=== PATIENT | female | born 1930 | race Caucasian/White ===

== ENCOUNTER 2018-01-10 05:17 | Inpatient (IN) | payer OTHER ==
[~2018-01-10] VITALS: Ht 157.5 cm; Wt 52.6 kg
[~2018-01-10 05:17] MED LIST: AGGRENOX 25 MG-1 CAP PO; ARICEPT10 M1 PO; ATIVAN1 M1 PO; FUROSEMIDE40 MG PO; METFORMIN HCL500 M3 PO; NEURONTIN300 M1 PO; NORVASC5 M1 PO; RISPERDAL0.25 M1 PO; SIMVASTATIN20 M2 PO
--- NOTE | 2018-01-10 05:29 | ED DYSPNEA/ASTHMA COMPLAINT ---
History of Present Illness General Chief Complaint: Dyspnea (COPD, CHF, Other) Stated Complaint: BIBA, DIFF BREATHING Source: patient, old records, EMS Exam Limitations: clinical condition, dementia Vital Signs & Intake/Output Vital Signs & Intake/Output Vital Signs Date Time Temp Pulse Resp B/P B/P Pulse O2 O2 Flow FiO2 Mean Ox Delivery Rate 01/10 0602 100 BIPAP 60% 01/10 0600 87 100 01/10 0525 96.6 116 18 125/67 99 Non 100% ReBreather Allergies Coded Allergies: codeine (UNKNOWN 01/10/18) Reconcile Medications Amlodipine (Norvasc 5MG Tab) 5 MG TAB 1 TAB PO DAILY HEART (Reported) DONEPEZIL HCL (Donepezil HCl) 10 MG TAB 1 TAB PO QPM MENTAL HEALTH (Reported) Furosemide 40 MG TAB 1 TAB PO DAILY PRN LEG SWELLING (Reported) Gabapentin (Neurontin) 300 MG CAP 1 CAP PO BID UNKNOWN (Reported) Lorazepam (Ativan) 0.5 MG TAB 1 TAB PO DAILY ANXIETY/AGGRESION (Reported) Metformin Hydrochloride (Metformin HCl) 500 MG TAB 1 TAB PO BID DIABETES ( Reported) Risperidone (Risperdal) 0.25 MG TAB 1 TAB PO DAILY MENTAL HEALTH (Reported) Simvastatin 20 MG TAB 1 TAB PO QPM CHOLESTEROL (Reported) Triage Nurses Notes Reviewed? yes Onset: Just prior to arrival Duration: minute(s):, constant, continues in ED Timing: recent history Severity: severe Activities at Onset: rest Prior Episodes/Possible Cause: illness exposure Associated Symptoms: cough, wheezing, weakness LMP (ages 10-50): post menopausal : No Patient currently breastfeeds: No HPI: Family reports patient is had ongoing breathing issues over the last 2 months with coughing wheezing and weakness. Prior to admission her breathing became more labored. There has been no fever chills nausea vomiting diarrhea abdominal pain chest pain headache dysuria rash bleeding. Past History Travel History Traveled to [place] past 21 day No Medical History Any Pertinent Medical History? 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 No Review of Systems Review of Systems Constitutional: Reports: no symptoms. EENTM: Reports: no symptoms. Respiratory: Reports: see HPI, cough, short of breath, wheezing. Cardiovascular: Reports: no symptoms. GI: Reports: no symptoms. Genitourinary: Reports: no symptoms. Musculoskeletal: Reports: no symptoms. Skin: Reports: no symptoms. Neurological/Psychological: Reports: no symptoms. Hematologic/Endocrine: Reports: no symptoms. Immunologic/Allergic: Reports: no symptoms. All Other Systems: Reviewed and Negative Physical Exam Physical Exam General Appearance: well developed/nourished, alert, awake, anxious, severe distress, thin Head: atraumatic, normal appearance Eyes: Bilateral: normal appearance, PERRL, EOMI. Ears, Nose, Throat: normal pharynx, normal ENT inspection, hearing grossly normal, moist mucus membranes Neck: normal inspection, supple, full range of motion, no midline tenderness Respiratory: chest non-tender, crackles, respiratory distress Cardiovascular: regular rate/rhythm, normal peripheral pulses, tachycardia, norml femoral pulses equa Peripheral Pulses: 4+ carotid (R), 4+ carotid (L) Gastrointestinal: normal bowel sounds, soft, non-tender, no organomegaly Extremities: normal inspection, normal capillary refill, normal range of motion, no edema Neurologic/Psych: no motor/sensory deficits, 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 No CVA/TIA Diagnosis No Sepsis Present: Yes Sepsis Focused Exam Completed? Yes ED Sepsis Exam Date of Focused Sepsis Exam: 01/10/18 Time of Focused Sepsis Exam: 0800 Sepsis Cardiac Exam: Regular Rate/Rhythm Sepsis Resp Exam: Rales Sepsis Cap Refill Exam: <2 Sec Sepsis Peripheral Pulse Exam: Normal Sepsis Peripheral Pulse Location: Radial Sepsis Skin Color Exam: Normal for Ethnicity Skin Temp/Moisture Exam: Warm/Dry Progress Differential Diagnosis: bronchitis, CHF, COPD, pneumonia Plan of Care: Orders Procedure Date/time Status Regular Diet 01/10 B Active LACTIC ACID 01/10 822 Active OXYGEN SETUP (GEN) 01/10 617 Complete Saline Lock 01/10 617 Active Admit to inpatient 01/10 617 Active Vital Signs 01/10 617 Active Activity/Ambulation 01/10 617 Active BLOOD CULTURE 01/10 617 Active Code Status 01/10 617 Active BIPAP 01/10 600 Complete RAPID VIRAL INFLUENZA A 01/10 557 Complete ARTERIAL BLOOD GAS (GEN) 01/10 522 Complete TROPONIN LEVEL 01/10 522 Complete MAGNESIUM 01/10 522 Complete LACTIC ACID 01/10 522 Complete COMPREHENSIVE METABOLIC PANEL 01/10 522 Complete CBC WITHOUT DIFFERENTIAL 01/10 522 Complete B-TYPE NATRIURETIC PEP (BNP) 01/10 522 Complete EKG 01/10 522 Active Current Medications Sig/Yuval Start time Last Medication Dose Stop Time Status Admin Azithromycin 500 MG ONCE ONE 01/10 645 AC (Zithromax) 01/11 744 Dextrose/Water 250 ML (D5W) Sodium Chloride 1,000 ML BOLUS ONE 01/10 630 AC 01/10 (Normal Saline 0.9%) 01/10 Sodium Chloride 1,000 ML BOLUS ONE 01/10 630 AC 01/10 (Normal Saline 0.9%) 01/10 729 06 Laboratory Tests 01/10/18 0528: Anion Gap 10, Estimated GFR 47 L, BUN/Creatinine Ratio 19.1, Glucose 268 H, Lactic Acid 2.9 H, Calcium 9.0, Magnesium 2.2, Total Bilirubin 0.4, AST 22, ALT 29, Alkaline Phosphatase 97, Troponin I 0.06, Thh-G-Picqqmwvgym Pept 1090 H, Total Protein 6.3, Albumin 2.9 L, Globulin 3.4, Albumin/Globulin Ratio 0.9 L, CBC w Diff NO MAN DIFF REQ, RBC 3.32 L, MCV 89.5, MCH 28.6, MCHC 31.9 L, RDW 16.2 H, MPV 8.8, Gran % 61.8, Lymphocytes % 27.7, Monocytes % 5.2, Eosinophils % 4.5, Basophils % 0.8, Absolute Granulocytes 6.2, Absolute Lymphocytes 2.8, Absolute Monocytes 0.5, Absolute Eosinophils 0.5, Absolute Basophils 0.1 01/10/18 0525: pH 7.28 *L, pCO2 54 H, pO2 229 H, HCO3 25, ABG O2 Sat (Measured) 99.0, P-50 ( Temp Corrected) Y, Carboxyhemoglobin 0.1 L, O2 Concentration % 100%, Temperature 96.6 L, O2 Delivery Method NRB, Phlebotomy Draw Site RIGHT RADIAL Microbiology 01/10 06 BLOOD: Blood Culture - RECD 01/10 614 NASOPHARYN: Influenza Virus A & B Rapid Smear - COMP 01/10 603 BLOOD: Blood Culture - RECD Diagnostic Imaging: Viewed by Me: Radiology Read. Discussed w/RAD: Radiology Read. CXR Impression: No dense consolidation. Bronchial wall thickening can be seen with a small airways process such as asthma or atypical/viral infection. Edema is also a consideration. Initial ED EKG: normal axis, normal intervals, normal p-waves, normal QRS complex, normal sinus rhythm, no ST T wave changes Prior EKG: unchanged Rhythm Strip: sinus tachycardia Departure Departure Disposition: STILL A PATIENT Condition: Guarded Clinical Impression Primary Impression: Pneumonia Secondary Impressions: Acute respiratory acidosis, Lactic acidosis Referrals: Von Dunham MD (PCP/Family) Departure Forms: Customer Survey General Discharge Information Admission Note Spoke With: Von Dunham MD Documentation of Exam: Documentation of any treatments & extenuating circumstances including Concerns Regarding Discharge (functional status, medication knowledge or non-compliance, living conditions, etc.) that warrant an admission rather than observation: Serial lab exam follow cultures supplemental oxygen IV antibiotics medication adjustment continuing care discharge planning Critical Care Note Critical Care Note Critical Care Time: 30-74 min (40)
--- NOTE | 2018-01-10 05:52 | RADIOLOGY REPORT ---
EXAMINATION: XR PORTABLE CHEST CLINICAL INFORMATION: Shortness of breath. Rales. COMPARISON: 10/10/2015 TECHNIQUE: Portable frontal view of the chest was obtained. FINDINGS: Cardiac leads overlie the chest. The lungs are well expanded. Diffuse bronchial wall thickening is present. There is no focal consolidation, edema, or effusion. No pneumothorax. The cardiomediastinal silhouette is within normal limits. No acute osseous abnormality. IMPRESSION: No dense consolidation. Bronchial wall thickening can be seen with a small airways process such as asthma or atypical/viral infection. Edema is also a consideration.
[2018-01-10 05:53] LABS: ABSOLUTE BASOPHIL COUNT 0.1 /CUMM (0.0-0.2); ABSOLUTE EOSINOPHIL COUNT 0.5 /CUMM (0.0-0.7); ABSOLUTE GRANULOCYTE CT 6.2 /CUMM (1.4-6.5); ABSOLUTE LYMPH COUNT 2.8 /CUMM (1.2-3.4); ABSOLUTE MONOCYTE COUNT 0.5 /CUMM (0.10-0.60); BASOPHIL % 0.8 % (0.0-2.0); EOSINOPHIL % 4.5 % (0-5); GRANULOCYTE % 61.8 % (42.2-75.2); HEMATOCRIT 29.7 % (37-47); MEAN CORPUSCULAR HGB 28.6 PG (27.0-31.0); MEAN CORPUSCULAR HGB CONC 31.9 G/DL (33.0-37.0); MEAN CORPUSCULAR VOLUME 89.5 FL (81.0-99.0); MEAN PLATELET VOLUME 8.8 FL (7.4-10.4); PLATELET COUNT 339 /CUMM (130-400); RBC DISTRIBUTION WIDTH 16.2 % (11.5-14.5); RED BLOOD CELL CT 3.32 /CUMM (4.20-5.40); WHITE BLOOD CELL COUNT 10.1 /CUMM (4.8-10.8)
--- NOTE | 2018-01-10 07:22 | History & Physical ---
See Addendum General Information and HPI MD Statement: I have seen and personally examined QUENTIN MAI V and documented this H&P. The patient is a 87 year old F who presented with a patient stated chief complaint of [cough and shortness of breath]. Source of Information: patient, family, old records Exam Limitations: no limitations History of Present Illness: Patient is an 84-year-old woman with past medical history of Alzheimer's dementia, type 2 diabetes, hypertension, dyslipidemia, cataracts, question partial seizures.and HFrEF (Last echo Cardizem done 07/06/2010 with injection fraction of 40% with moderate concentra left ventricular hypertrophy). Active community dweller; has 24-hour aid; very limited and confined ambulation uses walker. At her baseline walks about 150 feet without complaining of shortness of breath. Most of the history was given by her daughter and son. According to patient's family, for the past few months patient has developed worsening chronic cough; she is currently on pured and chopped mechanical food but daughter noticed that her mother's coughing spells has been recently getting worse and mostly triggered by drinking liquids. She was restarted on cough suppressant syrup by her primary care physician which according to her daughter effectively suppress the cough. For the past few weeks there has been no change in her physical status. This morning around 4 5 AM patient woke up suddenly with an acute spell of cough and choking. She was found clammy with increased work of breathing by her aid. 911 was called; in the flows her oxygen saturation was down to 50 or 60%. She was restarted on oxygen and was transferred to the emergency room immediately. In ED patient was initially started on non-rebreather (ABG showed hypoxic hypercapnic respiratory failure and respiratory acidosis); about 3 hours later patient's ABG improved acidosis resolved dramatically and patients' respiratory support was downgraded to BiPAP on 60% FiO2. Except for initial tachycardia and tachypnea the remainder of the vital signs during ED stay was normal. There is No fever, sputum production, recent upper respiratory tract infection chest pain, headaches, dizziness, lightheadedness, chest pain, palpitations, weight gain , leg swelling , increase in abdominal girth abdominal pain or right upper quadrant abdominal discomfort, constipation/diarrhea, nausea vomiting, fever/chills, easy bruising, balance issues. Retired, no history of exposure to industrial and biological allergens, no history of asthma and COPD in the family, former heavy smoker quit about 40 years ago. Allergies/Medications Allergies: Coded Allergies: codeine (UNKNOWN 01/10/18) Home Med list Amlodipine (Norvasc 5MG Tab) 5 MG TAB 1 TAB PO DAILY HEART (Reported) DONEPEZIL HCL (Donepezil HCl) 10 MG TAB 1 TAB PO QPM MENTAL HEALTH (Reported) Gabapentin (Neurontin) 300 MG CAP 1 CAP PO BID UNKNOWN (Reported) Lorazepam (Ativan) 0.5 MG TAB 1 TAB PO DAILY ANXIETY/AGGRESION (Reported) Metformin Hydrochloride (Metformin HCl) 500 MG TAB 1 TAB PO BID DIABETES ( Reported) Risperidone (Risperdal) 0.25 MG TAB 1 TAB PO DAILY MENTAL HEALTH (Reported) Simvastatin 20 MG TAB 1 TAB PO QPM CHOLESTEROL (Reported) Compliance With Home Meds: GOOD Past History Travel History Traveled to [place] past 21 day No Medical History Neurological: dementia, seizure, STROKE EENT: cataracts, hearing loss Cardiovascular: hyperlipidemia, systolic CHF, EDEMA Respiratory: NONE Gastrointestinal: NONE Hepatic: NONE Renal: urinary incontinence Musculoskeletal: NONE Psychiatric: NONE Endocrine: diabetes Blood Disorders: NONE Cancer(s): NONE 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 Needs Assist: dressing, toileting, bathing. Ambulation: walker IADLs Needs Assist: shopping, housework, finances, food prep, medication admin. Review of Systems Review of Systems Constitutional: Reports: see HPI. Respiratory: Reports: see HPI, cough, short of breath. Denies: hemoptysis, orthopnea, sputum production, stridor, wheezing. GI: Reports: no symptoms. Genitourinary: Reports: no symptoms. Musculoskeletal: Reports: no symptoms. Skin: Reports: no symptoms. All Other Systems: Reviewed and Negative Exam & Diagnostic Data Last 24 Hrs of Vital Signs/I&O Vital Signs Date Time Temp Pulse Resp B/P B/P Pulse O2 O2 Flow FiO2 Mean Ox Delivery Rate 01/10 0610 100 BIPAP 01/10 0602 100 BIPAP 60% 01/10 0600 87 100 01/10 0525 96.6 116 18 125/67 99 Non 100% ReBreather Physical Exam General Appearance Alert, Oriented X3, Cooperative, Mild Distress HEENT Atraumatic, PERRLA, mucous membranes are dry Neck Supple, No JVD Lymphatic Axillary nl, Cervical nl Cardiovascular Normal S1, Normal S2, No Murmurs Lungs diffuse rhonchi, prolonged expiration, no crackles Abdomen Soft Neurological Normal Speech Extremities No Edema Last 24 Hrs of Labs/Maximus: Laboratory Tests 01/10/18 0528: Anion Gap 10, Estimated GFR 47 L, BUN/Creatinine Ratio 19.1, Glucose 268 H, Lactic Acid 2.9 H, Calcium 9.0, Magnesium 2.2, Total Bilirubin 0.4, AST 22, ALT 29, Alkaline Phosphatase 97, Troponin I 0.06, Sma-A-Pjqxkhbhpmc Pept 1090 H, Total Protein 6.3, Albumin 2.9 L, Globulin 3.4, Albumin/Globulin Ratio 0.9 L, CBC w Diff NO MAN DIFF REQ, RBC 3.32 L, MCV 89.5, MCH 28.6, MCHC 31.9 L, RDW 16.2 H, MPV 8.8, Gran % 61.8, Lymphocytes % 27.7, Monocytes % 5.2, Eosinophils % 4.5, Basophils % 0.8, Absolute Granulocytes 6.2, Absolute Lymphocytes 2.8, Absolute Monocytes 0.5, Absolute Eosinophils 0.5, Absolute Basophils 0.1 01/10/18 0525: pH 7.28 *L, pCO2 54 H, pO2 229 H, HCO3 25, ABG O2 Sat (Measured) 99.0, P-50 ( Temp Corrected) Y, Carboxyhemoglobin 0.1 L, O2 Concentration % 100%, Temperature 96.6 L, O2 Delivery Method NRB, Phlebotomy Draw Site RIGHT RADIAL Microbiology 01/11 620 BLOOD: Blood Culture - RECD 01/10 614 NASOPHARYN: Influenza Virus A & B Rapid Smear - COMP 01/10 603 BLOOD: Blood Culture - RECD Diagnostic Data EKG Results Sinus tachycardia no STT segment change CXR Results No dense consolidation. Bronchial wall thickening can be seen with a small airways process such as asthma or atypical/viral infection. Edema is also a consideration. Other Results Echo from 2009: Elevated RV systolic pressure And heart failure with reduced ejection fraction of 40% Assessment/Plan Assessment: This is an 87-year-old woman with multiple comorbidities was admitted for acute hypoxic hypercapnic respiratory failure. Laboratory/vital/imaging Chest x-ray: No dense consolidation suggestive of pneumonia; bronchial wall thickening suggestive of asthma/COPD or atypical viral infection; edema is a possibility. Chest CT scan without IV contrast pending: Vitals: 96.6 F, pulse rate 87, respiratory 18, blood pressure 125/67, 100% on BiPAP FiO2 60% CBC: WBC 10.1 no left shift no bandemia , hemoglobin 9.5/29.7 , platelet 339 Chemistry: Sodium 142, potassium 4.7, chloride , chloride 109, anion gap 12, BUN 21, creatinine 1.1 Troponin: 0.06 ProBNP 1019 Differential diagnosis Acute hypoxic hypercapnic respiratory failure: Pneumonia (bacterial versus viral ), pneumonitis secondary to aspiration on top of chronic aspiration (history of dementia), decompensated heart failure, low probability of subsegmental pulmonary embolism (immobility, hypoxia with elevated A-a gradient and improved on O2 Wells 3 PE is unlikely). No new onset respiratory symptoms, no fever, no clear-cut evidence of new consolidation, in this setting, although the diagnosis of pneumonia or disease is still on the table for this patient other possibilities needs to be further assessed. Patient has a history of heart failure with reduced ejection fraction and elevated proBNP compared to previous readings (stable CKD), she has not been on proper medication regimen for CHF, echo evidence of severe RV pressure that could at the minimal can cause right-sided heart failure. For all the listed reasons this patient needs to be worked up further for possibility of heart failure decompensation. History of dementia and multiple weakness episodes of choking spells and chronic cough raises concern for chronic aspiration and aspiration pneumonitis. Chronic medical issues # Alzheimer dementia # Neuropathic pain # Diabetes and hyperlipidemia and hypertension # ? COPD #? Partial seizure ? TIA #? Heart failure with reduced ejection fraction # RV hypertension moderate Plan * Admit to general medical floor * Aspiration precaution * Swallow eval- at home she is on pure and chopped mechanical and thin liquid * Watch off antibiotics * Follow blood culture * Urine Legionella antigen; a Streptococcus urine antigen * Flu swab was negative * Follow the results of the CT scan- differentiating between bronchopneumonia versus pulmonary edema * Obtain echo * Trending troponin and EKG ruling out ACS * Cardiology consult * Trending lactic acid * Patient received 2000 ML bolus- hold off further hydration pending results of the CT ruling out pulmonary edema; if pulmonary edema was ruled out safely continue with 50 mL per hour half-saline maintenance fluid * Moderate fluid restriction daily weights and ins and outs * Hold off amlodipine * Hold off simvastatin * Continue risperidone * Hold metformin * continue aggrenox * NovoLog sliding scale 3 times a day before meals low-dose Housekeeping orders Full code As Ranked By This Provider Problem List: 1. Lactic acidosis 2. Acute respiratory acidosis 3. Diabetes mellitus type 2 4. Alzheimer's disease 5. Reduced ejection fraction concurrent with and due to chronic heart failure Core Measures/Misc (07/29) Acute Coronary Syndrome ACS Diagnosis: No Congestive Heart Failure Congestive Heart Failure Diagnosis No Cerebrovascular Accident CVA/TIA Diagnosis: No VTE (View Protocol) VTE Risk Factors Age>40 No Mechanical VTE Prophylaxis d/t N/A MechProphylax Ordered No VTE Pharm Prophylaxis d/t NA PharmProphylax ordered Sepsis (View protocol) Sepsis Present: No Resident Review Statement Resident Statement: examined this patient, discussed with recruitment intern, agreed with recruitment intern, discussed with family, reviewed EMR data (avail), discussed with nursing , discussed with case mgmt, reviewed images, amended to note
--- NOTE | 2018-01-10 11:40 | CT SCAN REPORT ---
EXAMINATION: CT CHEST WITHOUT CONTRAST CLINICAL INFORMATION: Dyspnea. Pneumonia versus pulmonary edema. COMPARISON: Chest x-ray dated 01/10/2018. TECHNIQUE: Multidetector volumetric CT imaging of the chest was obtained noncontrast. Sagittal and coronal reformations were obtained. DLP: 179.08 mGy-cm. FINDINGS: LUNGS: Evaluation mildly limited by motion artifact and low lung volumes. Dense partial consolidation and volume loss is seen in both lower lobes, suspicious for atelectasis and/or pneumonia. No effusion or pneumothorax. There are scattered small 3 to 6 mm solid noncalcified pulmonary nodules seen, largest of which include a posterior right apical 6 mm pleural-based reticular nodular opacity and a right middle lobe 5 mm nodule (series 4, image 249). There is a densely calcified granuloma in the right upper lobe (series 4, image 105). Central airways calcified and patent. LYMPHOVASCULAR STRUCTURES: Aorta ectatic. Heart borderline normal in size. Dense atherosclerotic calcifications of the aorta and moderate coronary artery calcifications. Dense mitral annular calcifications. No pericardial effusion. Abnormal 1.5 cm subcarinal lymph node seen. No other mediastinal, hilar or axillary adenopathy. THYROID GLAND: Unremarkable to the extent included. UPPER ABDOMEN: Pancreas markedly atrophic. Small retrocardiac hiatal hernia is seen. Included portions of the solid organs in the upper abdomen within normal limits. BONES: Diffuse osteopenia. Ossification along the anterior longitudinal ligament and multilevel moderate vertebral spurring throughout the thoracic spine. No suspicious focal findings. IMPRESSION: 1. Mildly limited exam due to motion artifact. 2. Low lung volumes with partial dense consolidation in both lower lobes, either related to atelectasis and/or pneumonia. No associated parapneumonic effusion seen. 3. Scattered small pulmonary nodules are seen, largest of which are in the right upper lobe and right middle lobe, measuring between 5 and 6 mm in size. These were not appreciated on the previous chest x-ray and are of uncertain etiology, possibly inflammatory, infectious, granulomatous, or potentially neoplastic. Short interval follow-up CT scan in 3 months post resolution of acute symptomatology is recommended to establish a new baseline exam. 4. Subcarinal adenopathy, possibly reactive. This can also be reassessed at the time of the above suggested follow-up CT scan. 5. Moderate coronary artery calcifications. 6. Markedly atrophic pancreas.
--- NOTE | 2018-01-10 11:44 | Admission Certification ---
Admission Certification Certification Statement - As attending physician, I certify that at the time of - admission, based on clinical presentation, severity of - symptoms, need for further diagnostic testing and - therapeutic interventions, and risk of adverse outcomes - without in-hospital treatment, in my clinical assessment, - this patient requires an acute hospital stay for a minimum - of two nights or longer. I have also considered psychsocial - factors such as support system, advanced age, financial - issues, cognitive issues, and failed out-patient treatments, - past re-admission history, safety of patient, and lack of - compliance as applicable. Specific rationale supporting this admission is: Shortness of breath, possible aspiration pneumonia
--- NOTE | 2018-01-10 11:48 | PN- Att Addend ---
Attending Addendum Attending Brief Note 87-year-old white female with advanced dementia, with 24-hour care at home, already on a pured diet. Started having shortness of breath and in a little bit less responsive and was brought to the emergency room. All the lab work and x-rays were obtained was started on some BiPAP with slight improvement of her mental status. Others at the bedside. It's possible that the patient might have aspirated. Patient coughs sometimes after eating a chest x-ray showed no dense consolidation and bronchial wall thickening which can be seen in asthma or a typical viral infection edema is also consideration. Due to inadequate cardiology consult was requested. Her BUN was 21 creatinine 1.1 white count was 10,100 with a nasal swab was negative for influenza A or B. Patient will be admitted will get IV antibiotics follow-up the labs. The swallowing evaluation and probably a modified barium swallow Current Medications Sig/Yuval Start time Last Medication Dose Route Stop Time Status Admin Acetaminophen 650 MG Q6P PRN 01/10 0945 AC PO Acetaminophen 1,000 MG Q6P PRN 01/10 0945 AC IV Albuterol Sulfate 3 ML ONCE ONE 01/10 0600 DC 01/10 INH 01/10 0601 0603 Azithromycin 500 MG ONCE ONE 01/10 0645 DC 01/10 Dextrose/Water 250 ML IV 01/10 0744 0802 Ceftriaxone Sodium 0 .STK-MED ONE 01/10 0707 DC .ROUTE Ceftriaxone Sodium 1,000 MG ONCE ONE 01/10 0645 DC 01/10 IV 01/10 0646 0708 Dipyridamole/Aspirin 1 CAP 2200 01/10 2200 AC PO Donepezil HCl 10 MG QPM 01/10 2200 AC PO Heparin Sodium 0 .STK-MED ONE 01/10 1026 CAN (Porcine) .ROUTE Heparin Sodium 5,000 UNIT Q8 01/10 0937 AC (Porcine) SC Ipratropium [place] 2.5 ML ONCE ONE 01/10 0600 DC 01/10 INH 01/10 0601 0603 Risperidone 0.25 MG 1000 01/10 1000 AC PO Sodium Chloride 1,000 ML BOLUS ONE 01/10 0630 DC 01/10 IV 01/10 0729 0630 Sodium Chloride 1,000 ML BOLUS ONE 01/10 0630 DC 01/10 IV 01/10 0729 0630 Laboratory Tests 01/10/18 0905: Troponin I 0.05 01/10/18 0905: Lactic Acid 3.0 H 01/10/18 0830: pH 7.34 L, pCO2 41, pO2 104 H, HCO3 22, ABG O2 Sat (Measured) 97.0, Carboxyhemoglobin 0.1 L, O2 Concentration % 35%, Respiration Rate 18, O2 Delivery Method BIPAP, Vent Mode ST, Expiratory Pressure 6, Inspiratory Pressure 18, Phlebotomy Draw Site RIGHT RADIAL 01/10/18 0744: Troponin I Cancelled 01/10/18 0528: Anion Gap 10, Estimated GFR 47 L, BUN/Creatinine Ratio 19.1, Glucose 268 H, Lactic Acid 2.9 H, Calcium 9.0, Magnesium 2.2, Total Bilirubin 0.4, AST 22, ALT 29, Alkaline Phosphatase 97, Troponin I 0.06, Bvl-B-Mjcsbobuvrs Pept 1090 H, Total Protein 6.3, Albumin 2.9 L, Globulin 3.4, Albumin/Globulin Ratio 0.9 L, CBC w Diff NO MAN DIFF REQ, RBC 3.32 L, MCV 89.5, MCH 28.6, MCHC 31.9 L, RDW 16.2 H, MPV 8.8, Gran % 61.8, Lymphocytes % 27.7, Monocytes % 5.2, Eosinophils % 4.5, Basophils % 0.8, Absolute Granulocytes 6.2, Absolute Lymphocytes 2.8, Absolute Monocytes 0.5, Absolute Eosinophils 0.5, Absolute Basophils 0.1 01/10/18 0525: pH 7.28 *L, pCO2 54 H, pO2 229 H, HCO3 25, ABG O2 Sat (Measured) 99.0, P-50 ( Temp Corrected) Y, Carboxyhemoglobin 0.1 L, O2 Concentration % 100%, Temperature 96.6 L, O2 Delivery Method NRB, Phlebotomy Draw Site RIGHT RADIAL Microbiology 01/10 06 NASOPHARYN: Influenza Virus A & B Rapid Smear - COMP Vital Signs Date Time Temp Pulse Resp B/P B/P Pulse O2 O2 Flow FiO2 Mean Ox Delivery Rate 01/10 1120 64 96 01/10 0957 97.4 73 18 159/84 96 BIPAP 01/10 0810 65 98 01/10 0610 100 BIPAP 01/10 0602 100 BIPAP 60% 01/10 0600 87 100 01/10 0525 96.6 116 18 125/67 99 Non 100% ReBreather
--- NOTE | 2018-01-10 13:08 | Cons- Cardiology ---
General Information and HPI Consulting Request Date of Consult: 01/10/18 Requested By: Von Dunham MD History of Present Illness: Ms. Valladares is an 84 year old female with history of hypertension, dyslpidemia, diabetes and dementia. Over the past week this patient has appeared more lethargic and clammy with worsening cough and appeared to be working hard to breath. At baseline, she can walk short distances slowly with a walker. Her cough has become worse but is productive of only clear sputum. It actually began months ago but has become worse. The patient is a poor historian but denies chest discomfort, shortness of breath, lightheadedness or palpitations. She has not demonstrated any fever or chills. According to patient's family, the patient is currently on pured and chopped mechanical food but her daughter noticed that her mother's coughing spells has been recently getting worse and mostly triggered by drinking liquids. Her oxygen saturation was down to 50 or 60%. She was restarted on oxygen and was transferred to the emergency room. Her ABG was consistent with hypercapneic respiratory failure and she is now on BIPAP. Allergies/Medications Allergies: Coded Allergies: codeine (UNKNOWN 01/10/18) Home Med List: Amlodipine (Norvasc 5MG Tab) 5 MG TAB 1 TAB PO DAILY HEART (Reported) DONEPEZIL HCL (Donepezil HCl) 10 MG TAB 1 TAB PO QPM MENTAL HEALTH (Reported) Gabapentin (Neurontin) 300 MG CAP 1 CAP PO BID UNKNOWN (Reported) Lorazepam (Ativan) 0.5 MG TAB 1 TAB PO DAILY ANXIETY/AGGRESION (Reported) Metformin Hydrochloride (Metformin HCl) 500 MG TAB 1 TAB PO BID DIABETES ( Reported) Risperidone (Risperdal) 0.25 MG TAB 1 TAB PO DAILY MENTAL HEALTH (Reported) Simvastatin 20 MG TAB 1 TAB PO QPM CHOLESTEROL (Reported) Review of Systems Review of Systems: A review of systems is unobtainable. Past History Travel History Traveled to [place] past 21 day No Medical History Neurological: dementia, seizure, STROKE EENT: cataracts, hearing loss Cardiovascular: hyperlipidemia, systolic CHF, EDEMA Respiratory: NONE Gastrointestinal: NONE Hepatic: NONE Renal: urinary incontinence Musculoskeletal: NONE Psychiatric: NONE Endocrine: diabetes Blood Disorders: NONE Cancer(s): NONE LAYOUT FORMER/Reproductive: NONE Surgical History Surgical History: non-contributory Psychosocial History Services at Home: Home Health Aide Smoking Status: Former Smoker Functional Ability ADLs Independent: eating. Needs Assist: dressing, toileting, bathing. Ambulation: walker IADLs Needs Assist: shopping, housework, finances, food prep, medication admin. Exam & Diagnostic Data Vital Signs and I&O Vital Signs Date Time Temp Pulse Resp B/P B/P Pulse O2 O2 Flow FiO2 Mean Ox Delivery Rate 01/10 1249 80 18 150/65 99 BIPAP 01/10 1120 64 96 01/10 0957 97.4 73 18 159/84 96 BIPAP 01/10 0810 65 98 01/10 0610 100 BIPAP 01/10 0602 100 BIPAP 60% 01/10 06 87 100 01/10 0525 96.6 116 18 125/67 99 Non 100% ReBreather Intake & Output 01/10 1600 01/10 0800 01/10 0000 01/09 1600 01/09 0800 01/09 0000 Intake Total 2000 Output Total Balance 2000 Intake, IV 2000 Physical Exam: General: WD/WN female in NAD; awake and responsive HEENT: NC/AT, PERRL, EOMI Neck: no JVD, no carotid bruit Heart: RRR with 2/6 systolic murmur Lungs: clear bilaterally with decreased air movement ABdomen: soft, NT, +ve bowel sounds Extremities: no edema Assessment/Plan Assessment/Plan * This patient has symptoms and physical findings that are more suggestive of pneumonia than decompensated CHF although some pulmonary edema could not be ruled out on her imaging. She was also noted to have coronary artery calcifications although these do not appear to be related to any acute coronary event. It is noted that this patient had a prior echocardiogram that showed a decreased EF of about 40%. She has not had any episodes of decompensated heart failure in the intervening time since this study was done. I would repeat her echocardiogram. Treat her pneumonia with antibiotics and continue to support with BIPAP. * This patient will need aspiration precautions and a swallow study. * Check a TSH and free T4. Consult Acknowledgment - Thank you for your consult request.
[2018-01-10 14:34] VITALS: BP 156/60
[2018-01-10 19:53] VITALS: BP 143/54
[2018-01-10 22:57] VITALS: BP 140/63
--- NOTE | 2018-01-11 02:27 | Event Note ---
Event Note Event Note: Overnight we were called by nursing and resp therapist that patient had a new sounding cough that was barking. On exam patient did not have cough and was satting 98% on 2L. She had no complaints but is demented at baseline so poor historian. She appeared to be comfortable. She does as per HPI have chronic cough. Robitussin without codeine was ordered and nurse instructed to call us if any decompensation or repeat barky cough. Patient was on BIPAP in the ED, ABG showed pH of 7.28, she does have history of COPD. Acidosis resolved with BIPAP and she was transitioned to NC which she continues on. Additionally nurse noted guaic positive bowel movement. We could not figure out why guaics were ordered for this patient as per documentation and notes from resident/attending. Hb currently 9.5, on prior admissions was around 11.5. Finally internet architect was presented with papers by nursing which support that patient would like to be Full code. POA was spoken with and she reaffirmed FC status. Code was changed from DNR/DNI to full code.
[2018-01-11 06:53] VITALS: BP 116/64
[2018-01-11 09:20] LABS: ABSOLUTE BASOPHIL COUNT 0.1 /CUMM (0.0-0.2); ABSOLUTE EOSINOPHIL COUNT 0.1 /CUMM (0.0-0.7); ABSOLUTE LYMPH COUNT 1.4 /CUMM (1.2-3.4); ABSOLUTE MONOCYTE COUNT 0.5 /CUMM (0.10-0.60); EOSINOPHIL % 0.6 % (0-5); GRANULOCYTE % 79.5 % (42.2-75.2); HEMATOCRIT 27.6 % (37-47); MEAN CORPUSCULAR HGB 28.6 PG (27.0-31.0); MEAN CORPUSCULAR HGB CONC 32.3 G/DL (33.0-37.0); MEAN CORPUSCULAR VOLUME 88.7 FL (81.0-99.0); MEAN PLATELET VOLUME 9.8 FL (7.4-10.4); PLATELET COUNT 237 /CUMM (130-400); RBC DISTRIBUTION WIDTH 15.2 % (11.5-14.5); RED BLOOD CELL CT 3.11 /CUMM (4.20-5.40); WHITE BLOOD CELL COUNT 10.1 /CUMM (4.8-10.8)
--- NOTE | 2018-01-11 10:42 | PN- Housestaff ---
Subjective Follow-up For: Aspiration risk. Aspiration pneumonitis versus pneumonia. Complaints: no complaints Subjective: Patient much improved this morning, now on room air. Continues to have some cough. No fevers or chills overnight. Review of Systems Constitutional: Reports: see HPI. Objective Last 24 Hrs of Vital Signs/I&O Vital Signs Date Time Temp Pulse Resp B/P B/P Pulse O2 O2 Flow FiO2 Mean Ox Delivery Rate 01/11 0653 98.2 68 18 116/64 98 Room Air 01/11 0017 71 92 01/11 0000 92 Room Air 01/10 2257 98.4 80 22 140/63 96 Nasal 2.0L Cannula 01/10 1955 98 Nasal 2.0L Cannula 01/10 195 98.5 80 143/54 98 Nasal 2.0L Cannula 01/10 1620 98.5 01/10 1620 Nasal 4.0L Cannula 01/10 1546 Nasal 4.0L Cannula 01/10 1521 9.0 01/10 1434 99.0 84 18 156/60 99 01/10 1333 66 98 01/10 1249 80 18 150/65 99 BIPAP 01/10 1120 64 96 Intake & Output 01/11 1600 01/11 0800 01/11 0000 Intake Total 850 350 Output Total Balance 850 350 Intake, IV 600 300 Intake, Oral 250 50 Number 3 2 Bowel Movements Patient 120 lb Weight Weight Bed scale Measurement Method Physical Exam General Appearance: Alert, Oriented X3, Cooperative Cardiovascular: Regular Rate, Normal S1, Normal S2 Lungs: Clear to Auscultation, Normal Air Movement Abdomen: Normal Bowel Sounds, Soft Extremities: No Clubbing, No Cyanosis, No Edema Current Medications: Current Medications Sig/Yuval Start time Last Medication Dose Route Stop Time Status Admin Acetaminophen 650 MG Q6P PRN 01/10 0945 AC PO Acetaminophen 1,000 MG Q6P PRN 01/10 0945 AC 01/10 IV 1521 Albuterol Sulfate 3 ML EVERY 4 HRS/AWAKE .. 01/10 1630 AC 01/10 INH 1948 Ampicillin Sodium/ 1,500 MG Q12H 01/10 1800 AC 01/11 Sulbactam Sodium IV 0522 Sodium Chloride 100 ML Dipyridamole/Aspirin 1 CAP 0 01/10 2200 AC 01/10 PO 2214 Donepezil HCl 10 MG QPM 01/10 2200 AC 01/10 PO 2215 Guaifenesin 10 ML .STK-MED ONE 01/11 0228 DC PO 01/11 0229 Guaifenesin 10 ML Q4P PRN 01/10 2100 AC 01/11 PO 0259 Guaifenesin 10 ML Q6P PRN 01/10 2045 CAN PO Guaifenesin 600 MG Q12 01/10 1516 DC PO Heparin Sodium 0 .STK-MED ONE 01/10 1026 CAN (Porcine) .ROUTE Heparin Sodium 5,000 UNIT Q8 01/10 0937 AC 01/11 (Porcine) SC 0521 Melatonin 5 MG AT BEDTIME 01/10 2200 AC 01/10 PO 2215 Risperidone 0.25 MG 1000 01/10 1000 AC 01/11 PO 0910 Sodium Chloride 1,000 ML Q13H 01/10 1415 DC 01/10 IV 01/11 0314 1521 Last 24 Hrs of Lab/Maximus Results Last 24 Hrs of Labs/Mics: Laboratory Tests 01/11/18 0755: Anion Gap 10, Estimated GFR 52 L, BUN/Creatinine Ratio 21.0, CBC w Diff NO MAN DIFF REQ, RBC 3.11 L, MCV 88.7, MCH 28.6, MCHC 32.3 L, RDW 15.2 H, MPV 9.8, Gran % 79.5 H, Lymphocytes % 13.8 L, Monocytes % 5.1, Eosinophils % 0.6, Basophils % 1.0, Absolute Granulocytes 8.0 H, Absolute Lymphocytes 1.4, Absolute Monocytes 0.5, Absolute Eosinophils 0.1, Absolute Basophils 0.1 01/10/18 1545: Lactic Acid 1.4 Microbiology 01/11 08 STOOL: Clostridium difficile Toxin A & B - ORD Assessment/Plan Assessment: 87-year-old woman with history of hypertension, dyslipidemia and dementia presented to [facility] ED after being more lethargic with worsening cough and labored breathing, required BiPAP support in the ED with subsequent transitioning to oxygen via nasal cannula, got treated for possible aspiration pneumonia, with much improved breathing status this morning. 1. Acute hypoxemic hypercarbic respiratory failure secondary to suspected aspiration pneumonia versus pneumonitis. Aspiration precautions. Swallow evaluation. Pured diet with nectar thick liquids. Aggressive pulmonary toilet. Frequent suctioning. TRC. IV Unasyn. Transition to by mouth antibiotics tomorrow contingent on clinical course. 2. Hypernatremia. Change IV fluids to D5 half-normal saline. Very gentle hydration. Await echocardiogram. Prior history of CHF, with no recent exacerbations. High lactate and dehydrated status upon presentation points to an etiology of infection and dehydration, more than fluid overload. Continue working with physical therapy. Pharmacological DVT prophylaxis. Full code. Puree diet with nectar thick liquids. Awaiting formal swallow eval. Problem List: 1. Pneumonia Pain Ratin Pain Location: None Pain Goal: Remain pain free Pain Plan: PRN Tomorrow's Labs & Rationales: HyperNa Acute Infection
--- NOTE | 2018-01-11 11:20 | PN- Att Addend ---
Attending Addendum Attending Brief Note Looking and feeling better sitting up in the chair but not short of breath and to status back to baseline Vital signs are stable temp max 99 no new changes on physical will continue present treatments and also follow cardiology's recommendations. 24 TOTALS 01/11 0000 01/10 0000 Intake Total 2350 Output Total Balance 2350 Intake, IV 2300 Intake, Oral 50 Number 1 Bowel Movements Patient 118 lb Weight Weight Bed scale Measurement Method Current Medications Sig/Yuval Start time Last Medication Dose Route Stop Time Status Admin Acetaminophen 650 MG Q6P PRN 01/10 0945 AC PO Acetaminophen 1,000 MG Q6P PRN 01/10 0945 AC 01/10 IV 1521 Albuterol Sulfate 3 ML EVERY 4 HRS/AWAKE .. 01/10 1630 AC 01/10 INH 1948 Ampicillin Sodium/ 1,500 MG Q12H 01/10 1800 AC 01/11 Sulbactam Sodium IV 0522 Sodium Chloride 100 ML Dextrose/Sodium 1,000 ML Q20H 01/11 1045 AC Chloride IV 01/12 0644 Dipyridamole/Aspirin 1 CAP 2200 01/10 2200 AC 01/10 PO 2214 Donepezil HCl 10 MG QPM 01/10 2200 AC 01/10 PO 2215 Guaifenesin 10 ML .STK-MED ONE 01/11 0228 DC PO 01/11 0229 Guaifenesin 10 ML Q4P PRN 01/10 2100 AC 01/11 PO 0259 Guaifenesin 10 ML Q6P PRN 01/10 2045 CAN PO Guaifenesin 600 MG Q12 01/10 1516 DC PO Heparin Sodium 0 .STK-MED ONE 01/10 1026 CAN (Porcine) .ROUTE Heparin Sodium 5,000 UNIT Q8 01/10 0937 AC 01/11 (Porcine) SC 0521 Melatonin 5 MG AT BEDTIME 01/10 2200 AC 01/10 PO 2215 Risperidone 0.25 MG 1000 01/10 1000 AC 01/11 PO 0910 Sodium Chloride 1,000 ML Q13H 01/10 1415 DC 01/10 IV 01/11 0314 1521 Laboratory Tests 01/11/18 0755: Anion Gap 10, Estimated GFR 52 L, BUN/Creatinine Ratio 21.0, CBC w Diff NO MAN DIFF REQ, RBC 3.11 L, MCV 88.7, MCH 28.6, MCHC 32.3 L, RDW 15.2 H, MPV 9.8, Gran % 79.5 H, Lymphocytes % 13.8 L, Monocytes % 5.1, Eosinophils % 0.6, Basophils % 1.0, Absolute Granulocytes 8.0 H, Absolute Lymphocytes 1.4, Absolute Monocytes 0.5, Absolute Eosinophils 0.1, Absolute Basophils 0.1 01/10/18 1545: Lactic Acid 1.4 01/10/18 0905: Troponin I 0.05, TSH 1.870, Thyroxine (T4) 8.9 01/10/18 0905: Lactic Acid 3.0 H 01/10/18 0830: pH 7.34 L, pCO2 41, pO2 104 H, HCO3 22, ABG O2 Sat (Measured) 97.0, Carboxyhemoglobin 0.1 L, O2 Concentration % 35%, Respiration Rate 18, O2 Delivery Method BIPAP, Vent Mode ST, Expiratory Pressure 6, Inspiratory Pressure 18, Phlebotomy Draw Site RIGHT RADIAL 01/10/18 0744: Troponin I Cancelled 01/10/18 0528: Anion Gap 10, Estimated GFR 47 L, BUN/Creatinine Ratio 19.1, Glucose 268 H, Lactic Acid 2.9 H, Calcium 9.0, Magnesium 2.2, Total Bilirubin 0.4, AST 22, ALT 29, Alkaline Phosphatase 97, Troponin I 0.06, Pjq-G-Viwuknaurbl Pept 1090 H, Total Protein 6.3, Albumin 2.9 L, Globulin 3.4, Albumin/Globulin Ratio 0.9 L, CBC w Diff NO MAN DIFF REQ, RBC 3.32 L, MCV 89.5, MCH 28.6, MCHC 31.9 L, RDW 16.2 H, MPV 8.8, Gran % 61.8, Lymphocytes % 27.7, Monocytes % 5.2, Eosinophils % 4.5, Basophils % 0.8, Absolute Granulocytes 6.2, Absolute Lymphocytes 2.8, Absolute Monocytes 0.5, Absolute Eosinophils 0.5, Absolute Basophils 0.1 01/10/18 0525: pH 7.28 *L, pCO2 54 H, pO2 229 H, HCO3 25, ABG O2 Sat (Measured) 99.0, P-50 ( Temp Corrected) Y, Carboxyhemoglobin 0.1 L, O2 Concentration % 100%, Temperature 96.6 L, O2 Delivery Method NRB, Phlebotomy Draw Site RIGHT RADIAL Microbiology 01/10 0614 NASOPHARYN: Influenza Virus A & B Rapid Smear - COMP Microbiology Date/Time Procedure - Status Source Growth 01/11 1038 Respiratory Culture - COLB LOWER RESP 01/11 1038 Gram Stain - COLB LOWER RESP 01/11 0829 Clostridium difficile Toxin A & B - COLB STOOL Vital Signs Date Time Temp Pulse Resp B/P B/P Pulse O2 O2 Flow FiO2 Mean Ox Delivery Rate 01/11 1111 96 Room Air Room Air 01/11 0653 98.2 68 18 116/64 98 Room Air 01/11 0017 71 92 01/11 0000 92 Room Air 01/10 2257 98.4 80 22 140/63 96 Nasal 2.0L Cannula 01/10 1955 98 Nasal 2.0L Cannula 01/10 195 98.5 80 143/54 98 Nasal 2.0L Cannula 01/10 1620 98.5 01/10 1620 Nasal 4.0L Cannula 01/10 1546 Nasal 4.0L Cannula 01/10 1521 9.0 01/10 1434 99.0 84 18 156/60 99 01/10 1333 66 98 01/10 1249 80 18 150/65 99 BIPAP 01/10 1120 64 96 Swallowing reevaluation is pending.
--- NOTE | 2018-01-11 13:54 | ECHOCARDIOGRAM REPORT ---
QUENTIN MAI Age: 87 : 1930 Gender: F Exam Date: 01/10/2018 16:17 Exam Location: [address] [place] [address] Ht (in): Wt (lb): BSA: BP: 159 / 80 Ordering Physician: Candice June MD Referring Physician: Ru Schultz MD, PhD Technologist: Nichelle Larkin [facility] Room Number: 233 Indications: HEART FAILURE Rhythm: Technical Quality: good FINDINGS Left Ventricle Normal left ventricular size, wall thickness and systolic function with no obvious regional wall motion abnormalities. Diatolic filling pattern is consistent with impaired LV relaxation. The ejection fraction is visually estimated at 60%. Right Ventricle The right ventricle is normal in size and function. Right Atrium The right atrium is normal in size. Left Atrium The left atrium is normal in size. The interatrial septum has a smal PFO with left to right shunt. Mitral Valve The mitral valve demonstrates mild posterior annular calcifications with normal function. There is mild to moderate mitral regurgitation. Aortic Valve Structurally normal aortic valve without significant sclerosis or stenosis. There is no aortic regurgitation. Tricuspid Valve The tricuspid valve is normal in structure and function. There is mild tricuspid regurgitation. Pulmonary artery systolic pressure is normal. Pulmonic Valve Structurally normal pulmonic valve. There is mild pulmonic regurgitation. Pericardium Normal pericardium with small effusion. No pleural effusion. Great Vessels Normal aortic root dimension. The aortic arch and great vessels are well seen and are normal. CONCLUSIONS 1. Normal EF of 60% with impaired LV relaxation. 2. Small PFO with left to right shunt. 3. Mild to moderate mitral regurgitation. 4. Mild tricuspid regurgitation. 5. Mild pulmonic regurgitation. 6. Small pericardial effusion without tamponade physiology. Ru Schultz M.D. (Electronically Signed) Final Date: 11 January 2018 13:54 MEASUREMENTS (Male / Female) Normal Values 2D ECHO LV Diastolic Diameter PLAX 3.5 cm 4.2 - 5.9 / 3.9 - 5.3 cm LV Systolic Diameter PLAX 1.9 cm 2.1 - 4.0 cm LV Fractional Shortening PLAX 45.7 % 25 - 46 % LV Ejection Fraction 2D Teich 78.0 % IVS Diastolic Thickness 1.2 cm LVPW Diastolic Thickness 1.1 cm LV Relative Wall Thickness 0.7 RV Internal Dim ED PLAX 2.8 cm 1.9 - 3.8 cm LVOT Diameter 1.9 cm Aortic Root Diameter 3.0 cm LA Systolic Diameter LX 3.6 cm 3.0 - 4.0 / 2.7 - 3.8 cm LA Volume 36.0 cm 18 - 58 / 22 - 52 cm Ascending Aorta Diameter 3.0 cm DOPPLER AV Peak Velocity 149.0 cm/s AV Peak Gradient 8.9 mmHg AV Mean Velocity 109.0 cm/s AV Mean Gradient 5.0 mmHg AV Velocity Time Integral 37.3 cm LVOT Peak Velocity 201.0 cm/s LVOT Peak Gradient 16.2 mmHg LVOT Mean Velocity 133.0 cm/s LVOT Mean Gradient 9.0 mmHg LVOT Velocity Time Integral 50.2 cm LVOT Stroke Volume 142.3 cm AV Area Cont Eq vti 3.8 cm AV Area Cont Eq pk 3.8 cm MV Peak Velocity 145.0 cm/s MV Peak Gradient 8.4 mmHg MV Mean Velocity 75.4 cm/s MV Mean Gradient 3.0 mmHg Mitral E Point Velocity 111.0 cm/s Mitral A Point Velocity 159.0 cm/s Mitral E to A Ratio 0.7 MV PHT Velocity 119.0 cm/s MV Deceleration [place] 389.0 cm/s MV Pressure Half Time 91.8 ms MV Area PHT 2.4 cm MV Deceleration Time 285.0 ms TR Peak Velocity 174.0 cm/s TR Peak Gradient 12.1 mmHg Right Atrial Pressure 5.0 mmHg Pulmonary Artery Systolic Pressu 17.1 mmHg Right Ventricular Systolic Press 17.1 mmHg PV Peak Velocity 141.0 cm/s PV Peak Gradient 8.0 mmHg PV Mean Velocity 92.8 cm/s PV Mean Gradient 4.0 mmHg PV Velocity Time Integral 29.2 cm LV E' Lateral Velocity 6.3 cm/s Mitral E to LV E' Lateral Ratio 17.5 LV E' Septal Velocity 6.2 cm/s Mitral E to LV E' Septal Ratio 18.0
--- NOTE | 2018-01-11 14:28 | RADIOLOGY REPORT ---
EXAMINATION: XR MODIFIED BARIUM SWALLOW CLINICAL INFORMATION: Chronic cough. Presumptive diagnosis of aspiration. COMPARISON: None. TECHNIQUE: A modified barium swallow was performed with speech pathologist in attendance. Pur?e and honey thick consistencies were given to the patient and the swallowing mechanism was observed fluoroscopically with several spot films taken using the last image hold feature. FLUOROSCOPY TIME: 3 minutes. FINDINGS: With all consistencies, the oropharyngeal phase of swallowing is abnormal with delayed initiation of a swallow. There is significant pooling of contrast in the valleculae and piriform sinuses with slow trickle of contrast into the airway with adelina aspiration seen with. Consistency and penetration seen with honey thick consistency with only inconsistent and weak sensation. IMPRESSION: Penetration of contrast with puree and honey thick consistency and aspiration of contrast seen with puree consistency with only inconsistent and weak sensation. Speech pathologist assessment issued separately.
[2018-01-11 15:23] VITALS: BP 146/60
--- NOTE | 2018-01-11 18:42 | PN- Cardiology ---
Subjective Subjective: * Patient has a congested cough but is breathing much better and denies shortness of breath. * Anemia with guaiac positive stool * Patient aspirated on swallow study * Normal EF on echocardiogram Objective Vital Signs and I&Os Vital Signs Date Time Temp Pulse Resp B/P B/P Pulse O2 O2 Flow FiO2 Mean Ox Delivery Rate 01/11 1523 97.2 61 18 146/60 98 01/11 1111 96 Room Air Room Air 01/11 0653 98.2 68 18 116/64 98 Room Air 01/11 0017 71 92 01/11 0000 92 Room Air 01/10 2257 98.4 80 22 140/63 96 Nasal 2.0L Cannula 01/10 1955 98 Nasal 2.0L Cannula 01/10 1953 98.5 80 143/54 98 Nasal 2.0L Cannula Intake & Output 01/11 1600 01/11 0800 01/11 0000 01/10 1600 01/10 0800 01/10 0000 Intake Total 698 153 0080 Output Total Balance 517 058 2775 Intake, IV 393 261 0821 Intake, Oral 250 50 Number 3 2 Bowel Movements Patient 119 lb 120 lb 118 lb Weight Weight Bed scale Bed scale Measurement Method Physical Exam: General: WD/WN female in NAD; alert and oriented x3 Neck: no JVD, no carotid bruit Heart: RRR with 2/6 systolic murmur Lungs: clear bilaterally with decreased air movement Extremities: no edema Assessment/Plan Assessment/Plan * Although this patient has coronary calcifications consistent with coronary artery disease, she does not have any current symptoms of myocardial ischmia or decompensated congestive heart failure. She was a bit dry on admission and continues to have a mildly elevated sodium consistent with mild dehydration. Continue antibiotics to treat her pneumonia. * This patient has evidence of aspiration. Perhaps this may improve over time as the patient's respiratory distress and fatigue em but for now she cannot have anything food by mouth. * No changes to medications. Continue telemetry? No
[2018-01-11 22:30] VITALS: BP 148/60
[2018-01-12 07:36] VITALS: BP 174/71
[2018-01-12 07:44] VITALS: BP 180/80
[2018-01-12 08:43] LABS: ABSOLUTE BASOPHIL COUNT 0 /CUMM (0.0-0.2); ABSOLUTE EOSINOPHIL COUNT 0.3 /CUMM (0.0-0.7); ABSOLUTE GRANULOCYTE CT 5.4 /CUMM (1.4-6.5); ABSOLUTE LYMPH COUNT 1.3 /CUMM (1.2-3.4); ABSOLUTE MONOCYTE COUNT 0.4 /CUMM (0.10-0.60); BASOPHIL % 0.3 % (0.0-2.0); EOSINOPHIL % 4.1 % (0-5); GRANULOCYTE % 73.1 % (42.2-75.2); HEMATOCRIT 26.3 % (37-47); MEAN CORPUSCULAR HGB 29.3 PG (27.0-31.0); MEAN CORPUSCULAR HGB CONC 33.1 G/DL (33.0-37.0); MEAN CORPUSCULAR VOLUME 88.3 FL (81.0-99.0); MEAN PLATELET VOLUME 9.4 FL (7.4-10.4); PLATELET COUNT 275 /CUMM (130-400); RBC DISTRIBUTION WIDTH 16.1 % (11.5-14.5); RED BLOOD CELL CT 2.97 /CUMM (4.20-5.40); WHITE BLOOD CELL COUNT 7.4 /CUMM (4.8-10.8)
[2018-01-12 08:53] VITALS: BP 180/78
--- NOTE | 2018-01-12 09:01 | PN- Housestaff ---
Nicholas ABARCA,Carson 01/12/18 0900: Subjective Follow-up For: Aspiration risk. Aspiration pneumonitis versus pneumonia. Elevated BP Subjective: Seen and examined at bedisde. Morning VS reports indicated incontrolle BP in the 180s. Pt is asymptomatic though, with no complaints of cp/palpitation,headaches, neurological deficits, or vision changes. Review of Systems Constitutional: Reports: see HPI. Objective Last 24 Hrs of Vital Signs/I&O Vital Signs Date Time Temp Pulse Resp B/P B/P Pulse O2 O2 Flow FiO2 Mean Ox Delivery Rate 01/12 1032 97.8 52 18 174/62 94 Room Air 01/12 0853 180/78 01/12 0744 76 180/80 01/12 0736 97.9 71 20 174/71 94 Room Air 01/12 0000 96 01/11 2230 148/60 01/11 2158 98.1 70 20 96 Room Air 01/11 1523 97.2 61 18 146/60 98 Intake & Output 01/12 1600 01/12 0800 01/12 0000 Intake Total 400 200 Output Total Balance 400 200 Intake, IV 400 200 Intake, Oral 0 0 Number 2 Bowel Movements Physical Exam General Appearance: Alert, Oriented X3, Cooperative Other Physical Findings: Cardiovascular: Regular Rate, Normal S1, Normal S2 Lungs: Clear to Auscultation, Normal Air Movement Abdomen: Normal Bowel Sounds, Soft Extremities: No Clubbing, No Cyanosis, No Edema Current Medications: Current Medications Sig/Yuval Start time Last Medication Dose Route Stop Time Status Admin Acetaminophen 650 MG Q6P PRN 01/10 0945 AC PO Acetaminophen 1,000 MG Q6P PRN 01/10 0945 AC 01/12 IV 1122 Albuterol Sulfate 3 ML EVERY 4 HRS/AWAKE .. 01/10 1630 AC 01/10 INH 1948 Ampicillin Sodium/ 1,500 MG Q12H 01/10 1800 AC 01/12 Sulbactam Sodium IV 0611 Sodium Chloride 100 ML Dextrose/Sodium 1,000 ML Q20H 01/11 1045 DC 01/11 Chloride IV 01/12 0644 1513 Dipyridamole/Aspirin 1 CAP 0 01/10 2200 AC 01/10 PO 2214 Donepezil HCl 10 MG QPM 01/10 2200 AC 01/10 PO 2215 Guaifenesin 10 ML Q4P PRN 01/10 2100 AC 01/11 PO 0259 Heparin Sodium 5,000 UNIT Q8 01/10 0937 AC 01/12 (Porcine) SC 0612 Melatonin 5 MG AT BEDTIME 01/10 2200 AC 01/10 PO 2215 Risperidone 0.25 MG 1000 01/10 1000 AC 01/11 PO 0910 Last 24 Hrs of Lab/Maximus Results Last 24 Hrs of Labs/Mics: Laboratory Tests 01/12/18 0716: Anion Gap 9, Estimated GFR 59 L, BUN/Creatinine Ratio 18.9, CBC w Diff NO MAN DIFF REQ, RBC 2.97 L, MCV 88.3, MCH 29.3, MCHC 33.1, RDW 16.1 H, MPV 9.4, Gran % 73.1, Lymphocytes % 17.1 L, Monocytes % 5.4, Eosinophils % 4.1, Basophils % 0.3, Absolute Granulocytes 5.4, Absolute Lymphocytes 1.3, Absolute Monocytes 0.4 , Absolute Eosinophils 0.3, Absolute Basophils 0 Microbiology 01/11 2230 STOOL: Clostridium difficile Toxin A & B - RECD Assessment/Plan Assessment: 87-year-old woman with history of hypertension, dyslipidemia, history of aspiration on puree diet at home, dementia presented to [facility] ED after being more lethargic with worsening cough and labored breathing, required BiPAP support in the ED with subsequent transitioning to oxygen via nasal cannula. High clinical suspicion for aspiration PNA vs aspiration pneumonitis. Admitted to [facility], started on Unasyn. Impression and Plan Hospital day #3, with clinical improvement of her respiratory status requiring no increased fio2. She has remained afebrile with no leukocytosis while on Unasyn IV for coverage of aspiration (PNA). She failed a swallow eval and an formal MBS was done which she also failed. Due to her high risk of aspiration supported by MBS study, decision was made to keep her NPO. This has complicated her BP oral medication administartion and she was noted to have elevated BPs in the 180s during repeated checks today. She is to be transferred to Telemetry for the indication of requiring IV bp meds. Had an extensive discussion with daughter about the failed MBS study and the patient high risk for aspiration. Informed daughter about the available options such as PEG-Tube. Regarding her Hypernatremia, it has resolved s/p free water correction. We will continue with Unasyn for a total of 5 days, supplementation to keep sats above 90%, Continue NPO D51/2 NS at 50ml/hr. We will use enalapril IV if needed for BP controlled. Problem List: 1. Pneumonia Pain Ratin Pain Location: none Pain Goal: Remain pain free Pain Plan: per pathway Tomorrow's Labs & Rationales: DARINEL Bowling MD,Gibson 01/12/18 1221: Attending MD Review Statement Attending Statement Attending MD Statement: examined this patient, discuss w/resident/PA/VOCATIONAL REHABILITATION SPECIALIST, agreed w/resident/PA/VOCATIONAL REHABILITATION SPECIALIST, discussed with family, reviewed EMR data (avail), discussed with nursing, reviewed images, amended to note Attending Assessment/Plan: Mrs. Valladares was transferred to telemetry secondary to elevated blood pressure. This is most likely the result of her nothing by mouth status as she has not been receiving her maintenance amlodipine. Modified barium swallow performed yesterday was positive for aspiration. We have initiated transdermal clonidine for BP control. The placement of a PEG was discussed with her son who will present this issue to his siblings. We are continuing intravenous ampicillin/ sulbactam for treatment of her pneumonia. We are also continuing pulmonary supportive measures. We are continuing IV fluids.
[2018-01-12 10:32] VITALS: BP 174/62
[2018-01-12 16:37] VITALS: BP 150/66
--- NOTE | 2018-01-12 20:09 | PN- Cardiology ---
Subjective Subjective: The patient is feeling better. He continues to have cough. Blood pressure has become elevated. He is not able to take p.o. medications, so clonidine patch was started. Objective Vital Signs and I&Os Vital Signs Date Time Temp Pulse Resp B/P B/P Pulse O2 O2 Flow FiO2 Mean Ox Delivery Rate 01/12 1637 98.2 64 18 150/66 95 Room Air 01/12 1600 Room Air 01/12 1423 58 170/64 01/12 1333 95 Room Air 01/12 1032 97.8 52 18 174/62 94 Room Air 01/12 0853 180/78 01/12 0744 76 180/80 01/12 0736 97.9 71 20 174/71 94 Room Air 01/12 0000 96 01/11 2230 148/60 01/11 2158 98.1 70 20 96 Room Air Intake & Output 01/12 1600 01/12 0800 01/12 0000 01/11 1600 01/11 0800 01/11 0000 Intake Total 400 400 200 850 350 Output Total Balance 400 400 200 850 350 Intake, IV 400 400 200 600 300 Intake, Oral 0 0 250 50 Number 2 3 2 Bowel Movements Patient 119 lb 120 lb Weight Weight Bed scale Measurement Method Physical Exam: Gen: NAD HEENT: normal Lungs: clear to auscultation, normal resp. effort Heart: RRR, S1, S2, no murmurs Abdomen: Soft, nontender, no masses Extremities: No clubbing, cyanosis, or edema. Neuro: Alert and oriented x 3, cranial nerves intact Current Medications: Current Medications Sig/Yuval Start time Last Medication Dose Route Stop Time Status Admin Acetaminophen 650 MG Q6P PRN 01/10 0945 AC PO Acetaminophen 1,000 MG Q6P PRN 01/10 0945 AC 01/12 IV 1122 Albuterol Sulfate 3 ML EVERY 4 HRS/AWAKE .. 01/10 1630 AC 01/10 INH 1948 Ampicillin Sodium/ 1,500 MG Q12H 01/10 1800 AC 01/12 Sulbactam Sodium IV 1801 Sodium Chloride 100 ML Clonidine 1 PAT Q168 01/12 1220 AC 01/12 TOP 1423 Dextrose/Sodium 1,000 ML Q20H 01/12 1815 AC 01/12 Chloride IV 1833 Dextrose/Sodium 1,000 ML Q20H 01/12 1200 DC 01/12 Chloride IV 01/13 0759 1252 Dextrose/Sodium 1,000 ML Q20H 01/11 1045 DC 01/11 Chloride IV 01/12 0644 1513 Dipyridamole/Aspirin 1 CAP 01/10 AC 01/10 PO 2214 Donepezil HCl 10 MG QPM 01/10 2200 AC 01/10 PO 2215 Guaifenesin 10 ML Q4P PRN 01/10 2100 AC 01/11 PO 0259 Heparin Sodium 5,000 UNIT Q8 01/10 0937 AC 01/12 (Porcine) SC 1423 Melatonin 5 MG AT BEDTIME 01/10 2200 AC 01/10 PO 2215 Risperidone 0.25 MG 1000 01/10 1000 AC 01/11 PO 0910 Results Last 48 Hrs of Labs/Mics: Laboratory Tests 01/12/18 0716: Anion Gap 9, Estimated GFR 59 L, BUN/Creatinine Ratio 18.9, CBC w Diff NO MAN DIFF REQ, RBC 2.97 L, MCV 88.3, MCH 29.3, MCHC 33.1, RDW 16.1 H, MPV 9.4, Gran % 73.1, Lymphocytes % 17.1 L, Monocytes % 5.4, Eosinophils % 4.1, Basophils % 0.3, Absolute Granulocytes 5.4, Absolute Lymphocytes 1.3, Absolute Monocytes 0.4 , Absolute Eosinophils 0.3, Absolute Basophils 0 01/11/18 0755: Anion Gap 10, Estimated GFR 52 L, BUN/Creatinine Ratio 21.0, CBC w Diff NO MAN DIFF REQ, RBC 3.11 L, MCV 88.7, MCH 28.6, MCHC 32.3 L, RDW 15.2 H, MPV 9.8, Gran % 79.5 H, Lymphocytes % 13.8 L, Monocytes % 5.1, Eosinophils % 0.6, Basophils % 1.0, Absolute Granulocytes 8.0 H, Absolute Lymphocytes 1.4, Absolute Monocytes 0.5, Absolute Eosinophils 0.1, Absolute Basophils 0.1 Microbiology 01/11 2230 STOOL: Clostridium difficile Toxin A & B - COMP Recent Imaging Studies: Barium swallow Assessment/Plan Assessment/Plan Assessment: 1. Coronary calcification 2. Pneumonia 3. Uncontrolled hypertension secondary to inability to take p.o. medication Plan: * Agree with initiation of clonidine patch TTS 1 for hypertension. * Continue IV antibiotic * continue supportive care Continue telemetry? Yes
[2018-01-12 23:00] VITALS: BP 148/68
[2018-01-13 06:00] VITALS: BP 166/70
[2018-01-13 08:46] LABS: ABSOLUTE BASOPHIL COUNT 0.1 /CUMM (0.0-0.2); ABSOLUTE EOSINOPHIL COUNT 0.3 /CUMM (0.0-0.7); ABSOLUTE LYMPH COUNT 1.3 /CUMM (1.2-3.4); ABSOLUTE MONOCYTE COUNT 0.4 /CUMM (0.10-0.60); BASOPHIL % 0.9 % (0.0-2.0); EOSINOPHIL % 3.6 % (0-5); MEAN CORPUSCULAR HGB 28.8 PG (27.0-31.0); MEAN CORPUSCULAR HGB CONC 32.9 G/DL (33.0-37.0); MEAN CORPUSCULAR VOLUME 87.5 FL (81.0-99.0); MEAN PLATELET VOLUME 9.3 FL (7.4-10.4); PLATELET COUNT 328 /CUMM (130-400); RBC DISTRIBUTION WIDTH 15.6 % (11.5-14.5)
--- NOTE | 2018-01-13 14:03 | PN- Att Addend ---
Attending Addendum Attending Brief Note Mrs. Valladares is awaiting evaluation by hospice. She has remained stable and blood pressure has improved with transdermal clonidine. We are continuing her present management pending her evaluation. Options for continuing care were discussed was the patient's daughter who is her power of ip technology transactions attorney and also power of healthcare advisor. She is awaiting determination also from hospice and at that time we will discuss the matter with her siblings and come to a consensus for care. Options to be considered are PEG placement or in-house hospice at [place], home hospice, or inpatient hospice at [place]. These items were discussed at length.
[2018-01-13 14:25] VITALS: BP 170/82
--- NOTE | 2018-01-13 14:41 | Event Note ---
Event Note Event Note: Discussed with Dr. Bowling and the hospice nurse, Nisa([phone]). They have discussion with the family and change the CODE STATUS to comfort Measure. Patient will go to home hospice care tomorrow. We also updated to primary care team. Discuss with the family including Mister Joens(Son; [phone] (c); [phone]) and Daughter Serafin. They requested to discharge the patient on Sunday from home hospice care.
--- NOTE | 2018-01-13 14:53 | PN- Att Addend ---
Attending Addendum Attending Brief Note Spoke with hospice after the evaluation of Mrs. Valladares. At this time they have stated the best course is home hospice with which the family has provisionally agreed. We will change her CODE STATUS to comfort measures but will continue her IV fluids and antibiotics as well as her transdermal medications pending transfer to occur tomorrow.
[2018-01-13 22:15] VITALS: BP 138/70
[2018-01-14 06:20] VITALS: BP 120/74
--- NOTE | 2018-01-14 09:01 | PN- Housestaff ---
Subjective Follow-up For: Aspiration risk. Aspiration pneumonitis versus pneumonia. Subjective: Offers no complaints. Review of Systems Constitutional: Reports: see HPI. Objective Last 24 Hrs of Vital Signs/I&O Vital Signs Date Time Temp Pulse Resp B/P B/P Pulse O2 O2 Flow FiO2 Mean Ox Delivery Rate 01/14 0620 97.9 64 20 120/74 94 Room Air / 2215 98.0 66 18 138/70 94 Room Air 01/13 1425 98.5 62 16 170/82 95 Room Air 01/13 0916 97 Room Air Intake & Output 01/14 1600 01/14 0800 03 0000 Intake Total 200 Output Total Balance 200 Intake, IV 200 Intake, Oral 0 Physical Exam General Appearance: Alert, Oriented X3 HEENT: Atraumatic Neck: Supple, No JVD Cardiovascular: Regular Rate, Normal S1, Normal S2 Lungs: Clear to Auscultation, Normal Air Movement Abdomen: Normal Bowel Sounds, Soft Extremities: No Clubbing, No Cyanosis Current Medications: Current Medications Sig/Yuval Start time Last Medication Dose Route Stop Time Status Admin Acetaminophen 650 MG Q6P PRN 01/10 0945 DC PO Acetaminophen 1,000 MG Q6P PRN 01/10 0945 DC 01/12 IV 1122 Albuterol Sulfate 3 ML EVERY 4 HRS/AWAKE .. 01/10 1630 AC 01/10 INH 1948 Ampicillin Sodium/ 1,500 MG Q12H 01/10 1800 AC / Sulbactam Sodium IV 0622 Sodium Chloride 100 ML Clonidine 1 PAT Q168 01/12 1220 AC 01/12 TOP 1423 Dextrose/Sodium 1,000 ML Q20H 01/12 1815 AC 01/13 Chloride IV 1600 Dipyridamole/Aspirin 1 CAP 2200 01/10 2200 DC 01/10 PO 2214 Donepezil HCl 10 MG QPM 01/10 2200 DC 01/10 PO 2215 Guaifenesin 10 ML Q4P PRN 01/10 2100 AC 01/11 PO 0259 Heparin Sodium 5,000 UNIT Q8 01/10 0937 DC 01/13 (Porcine) SC 1323 Melatonin 5 MG AT BEDTIME 01/10 2200 AC 01/10 PO 2215 Risperidone 0.25 MG 1000 03/ 1000 DC 01/11 PO 0910 Assessment/Plan Assessment: 87-year-old woman with history of hypertension, dyslipidemia, dementia presented to [facility] ED with lethargy, worsening cough and difficulty breathing, found to be high aspiration risk on swallow eval, subsequently made nothing by mouth continues to be an IV Unasyn and following a family meeting over the weekend, code status has been changed to KIER PLEATER. 1. Continue current antibiotics, fluid hydration, frequent suctioning, aspiration precautions. Continue nothing by mouth measures. 2. Blood pressure much controlled with clonidine patch. 3. Await hospice evaluation for home hospice. KIER PLEATER. Nothing by mouth. DVT prophylaxis-mechanical. Problem List: 1. Speech problem Pain Ratin Pain Location: N/A Pain Goal: Remain pain free Pain Plan: PRN Tomorrow's Labs & Rationales: Not needed
--- NOTE | 2018-01-14 09:57 | PN- Att Addend ---
Attending Addendum Attending Brief Note Patient doing poorly, not able to take by mouth intake. Now on comfort care. Son and aid at her bedside. Her vital signs are still stable in no respiratory distress. Changes on physical. Arrangements be made for home hospice, as soon as ready will discharge. Intake & Output 01/14 1600 01/14 0800 01/14 0000 Intake Total 200 Output Total Balance 200 Intake, IV 200 Intake, Oral 0 Vital Signs Date Time Temp Pulse Resp B/P B/P Pulse O2 O2 Flow FiO2 Mean Ox Delivery Rate 01/14 08 Room Air 01/14 0620 97.9 64 20 120/74 94 Room Air 01/13 2215 98.0 66 18 138/70 94 Room Air 01/13 1425 98.5 62 16 170/82 95 Room Air
[2018-01-14] MEDS ORDERED: ALBUTEROL2.5 MG/3 M INH (13:48)
[2018-01-14] MEDS ORDERED: CATAPRES-TTS 11 EACH TOP (13:48)
--- NOTE | 2018-01-14 13:50 | Patient Discharge Instructions ---
Discharge Instructions General Discharge Information You were seen/treated for: Aspiration Pneumonia Special Instructions: Home Hospice Acute Coronary Syndrome Inclusion Criteria At DC or during hospital stay patient has or had the following: ACS DIAGNOSIS No Discharge Core Measures Meds if any: Prescribed or Continued at Discharge Meds if any: NOT Prescribed or Continued at Discharge Congestive Heart Failure Inclusion Criteria At DC or during hospital stay patient has or had the following: CHF DIAGNOSIS No Discharge Core Measures Meds if any: Prescribed or Continued at Discharge Meds if any: NOT Prescribed or Continued at Discharge Cerebrovascular accident Inclusion Criteria At DC or during hospital stay patient has or had the following: CVA/TIA Diagnosis No Discharge Core Measures Meds if any: Prescribed or Continued at Discharge Meds if any: NOT Prescribed or Continued at Discharge Venous thromboembolism Inclusion Criteria VTE Diagnosis No VTE Type NONE VTE Confirmed by (Test) NONE Discharge Core Measures - Per Current guidelines, there needs to be overlap - treatment for the first 5 days of Warfarin therapy. - If discharged on Warfarin prior to 5 days of - overlap therapy, the patient will need to be - assessed for post discharge needs including - *Post discharge parental anticoagulation - *Warfarin and/or parental anticoagulation education - *Follow up date to check INR post discharge At least 5 days overlap therapy as Inpatient No Meds if any: Prescribed or Continued at Discharge Note: Overlap Therapy is Warfarin and Anticoagulant Meds if any: NOT Prescribed or Continued at Discharge
[2018-01-14] MEDS ORDERED: ATIVAN1 M1 PO (14:01)
[2018-01-14] MEDS ORDERED: MORPHINE S10 MG/5 M2 PO (14:01)
[2018-01-14] MEDS ORDERED: SCOPOLAMINE1 EAC1 TOP (14:01)
[2018-01-14 15:27] VITALS: BP 156/64
[2018-01-14 22:17] VITALS: BP 142/70
[2018-01-15 06:27] VITALS: BP 148/60
--- NOTE | 2018-01-15 10:14 | PN- Att Addend ---
Attending Addendum Attending Brief Note No major changes in her children at the bedside. Her vital signs are stable no fever no new changes on physical patient is going home on home hospice, family would like the patient to have a repeat barium swallow, to make sure they do the right thing when the patient goes home Intake & Output 01/15 1600 01/15 0400 01/14 1600 01/14 0400 01/13 1600 01/13 0400 Intake Total 400 400 880 200 800 100 Output Total 5 Balance 400 400 880 200 795 100 Intake, IV 400 400 880 200 800 100 Intake, Oral 0 0 0 0 Number 1 0 2 Bowel Movements Output, Other 5 Patient 116 lb 114 lb Weight Weight Bed scale Measurement Method Current Medications Sig/Yuval Start time Last Medication Dose Route Stop Time Status Admin Albuterol Sulfate 3 ML EVERY 4 HRS/AWAKE .. 01/10 1630 AC 01/10 INH 1948 Ampicillin Sodium/ 1,500 MG Q12H 01/10 1800 AC 01/15 Sulbactam Sodium IV 0512 Sodium Chloride 100 ML Clonidine 1 PAT Q168 01/12 1220 AC 01/12 TOP 1423 Dextrose/Sodium 1,000 ML Q20H 01/12 1815 AC 01/15 [place] 0517 Guaifenesin 10 ML Q4P PRN 01/10 2100 AC 01/11 PO 0259 Lorazepam 0.5 MG ONCE ONE 01/15 0945 DC 01/15 IV 01/15 0946 0950 Melatonin 5 MG AT BEDTIME 01/10 2200 AC 01/10 PO 2215 Laboratory Tests 01/13/18 0630: Anion Gap 9, Estimated GFR 59 L, BUN/Creatinine Ratio 14.4, CBC w Diff NO MAN DIFF REQ, RBC 3.20 L, MCV 87.5, MCH 28.8, MCHC 32.9 L, RDW 15.6 H, MPV 9.3, Gran % 72.0, Lymphocytes % 18.4 L, Monocytes % 5.1, Eosinophils % 3.6, Basophils % 0.9, Absolute Granulocytes 5.0, Absolute Lymphocytes 1.3, Absolute Monocytes 0.4, Absolute Eosinophils 0.3, Absolute Basophils 0.1 Vital Signs Date Time Temp Pulse Resp B/P B/P Pulse O2 O2 Flow FiO2 Mean Ox Delivery Rate 01/15 0800 Room Air 01/15 06 98.8 60 20 148/60 93 Room Air 01/14 2217 97.9 65 22 142/70 95 01/14 1527 98.4 66 20 156/64 95 01/14 1431 Room Air Room Air
--- NOTE | 2018-01-15 12:19 | RADIOLOGY REPORT ---
EXAMINATION: XR MODIFIED BARIUM SWALLOW CLINICAL INFORMATION: Patient going for hospice. Depending discharged. Reevaluation. COMPARISON: Modified barium swallow dated 01/11/2018. TECHNIQUE: A modified barium swallow was performed with speech pathologist in attendance. Pur?e and honey thick consistencies were given to the patient and the swallowing mechanism was observed fluoroscopically with several spot films taken using the last image hold feature. FLUOROSCOPY TIME: 1.51 minutes. FINDINGS: With both consistencies, the oropharyngeal phase of swallowing is abnormal with difficulty in initiation of a swallow noted. Deglutition occurs after multiple attempts at swallowing by the patient. There is pooling of contrast in the valleculae and piriform sinuses. There is also penetration of contrast seen with both puree and honey thick consistencies, leading to delayed coughing reflex and ineffectual clearing. Patient required oral suctioning by speech pathologist during the exam. IMPRESSION: 1. Abnormal oral phase of swallowing with difficulty in initiation of a swallow. 2. Abnormal pooling of contrast in the vallecula and piriform sinuses. 3. Penetration of contrast with both puree and honey thick consistencies, leading to an ineffectual and delayed cough response. 4. Speech pathologist assessment issued separately.
[2018-01-15] MEDS ORDERED: ATIVAN1 M1 PO (13:47)
== END 2018-01-15 14:00 | DRG 177 ==
LOC: ERH 05:17 → ERHI 06:17 → 2NA 06:17 → ENRESERV 12:57 → ENTRNSPT 13:33 → 2NA 13:47 → EDTRNSPTSTS 13:59 → EDTRNSPT 13:59 → 2NA 14:17 → CMPTRNSPT 14:21 → 1NO 01-12 09:34 → 2NA 01-13 18:19 → ENPENDDIS 01-15 09:12 → 2NA 01-15 14:00
PROVIDERS: Emergency Medicine; Internal Medicine Hematology & Oncology; Student in an Organized Health Care Education/Training Program
DX: J69.0 Pneumonitis due to inhalation of food and vomit (principal); J96.02 Acute respiratory failure with hypercapnia; E87.2 Acidosis; E87.0 Hyperosmolality and hypernatremia; J96.01 Acute respiratory failure with hypoxia; E11.9 Type 2 diabetes mellitus without complications; D64.9 Anemia, unspecified; I13.0 Hypertensive heart and chronic kidney disease with heart failure and stage 1 through stage 4 chronic kidney disease, or unspecified chronic kidney disease; I50.22 Chronic systolic (congestive) heart failure; F03.90 Unspecified dementia, unspecified severity, without behavioral disturbance, psychotic disturbance, mood disturbance, and anxiety; N18.9 Chronic kidney disease, unspecified; E86.0 Dehydration; E78.5 Hyperlipidemia, unspecified; G30.9 Alzheimer's disease, unspecified; F02.80 Dementia in other diseases classified elsewhere, unspecified severity, without behavioral disturbance, psychotic disturbance, mood disturbance, and anxiety; G62.9 Polyneuropathy, unspecified; Z66 Do not resuscitate
CPT/HCPCS: 1NP; 2NAP; 36415; 36592; 71045; 74230; 82436; 87040; 87070; 87804; 87804-59; 93005; 93010; 93306; 96360; 96361; 99291; J0131; J0456; J0696; J1644; J7042; J7060